=== PATIENT | male | born 1945 | race Caucasian/White ===

== ENCOUNTER 2017-06-14 18:41 | Inpatient (IN) | payer MEDICARE ==
[2017-06-14] MEDS ORDERED: SODIUM CHLORIDE 0.9% 1,000 ML IV STA (18:57)
[2017-06-14] MEDS ORDERED: SODIUM CHLORIDE 0.9% 500 ML IV STA (18:57)
[2017-06-14] MEDS ORDERED: PANTOPRAZOLE 40 MG/10 ML VIAL IVP STA (18:57)
--- NOTE | 2017-06-14 19:18 | ED ---
General Adult HPI - General Chief complaint: GI Bleed Stated complaint: rectal bleeding Time Seen by Provider: 06/14/17 18:57 Source: patient, RN notes reviewed, old records reviewed Mode of arrival: ambulatory Limitations: no limitations - History of Present Illness Initial comments: This is a 71-year-old male the ER for evaluation. Patient presents today for evaluation of GI bleed. Patient sent in by family doctor for evaluation regarding GI bleed. Patient has 2 days of positive blood per stool. No nausea vomiting no vomiting of blood. No history of similar. - Related Data Home Medications Medication Instructions Recorded Confirmed Apixaban [Eliquis] 5 mg PO BID 06/14/17 06/14/17 Ascorbic Acid [Vitamin C] 1,000 mg PO DAILY 06/14/17 06/14/17 Aspirin 81 mg PO DAILY 06/14/17 06/14/17 Digoxin [Lanoxin] 125 mcg PO DAILY 06/14/17 06/14/17 Famotidine [Pepcid] 20 mg PO BID 06/14/17 06/14/17 Fish Oil/Dha/Epa [Fish Oil 1,200 2 cap PO BID 06/14/17 06/14/17 mg Fish Oil] Hydrochlorothiazide [Hydrodiuril] 50 mg PO DAILY 06/14/17 06/14/17 Lisinopril [Zestril] 20 mg PO BID 06/14/17 06/14/17 Metoprolol Succinate (ER) [Toprol 200 mg PO DAILY 06/14/17 06/14/17 Xl] amLODIPine [Norvasc] 10 mg PO DAILY 06/14/17 06/14/17 metFORMIN HCL [Glucophage] 1,000 mg PO DAILY 06/14/17 06/14/17 metFORMIN HCL [Glucophage] 500 mg PO HS 06/14/17 06/14/17 Allergies Allergy/AdvReac Type Severity Reaction Status Date / Time No Known Allergies Allergy Verified 06/14/17 19:19 Review of Systems ROS Statement: Those systems with pertinent positive or pertinent negative responses have been documented in the HPI. ROS Other: All systems not noted in ROS Statement are negative. Past Medical History Past Medical History: Coronary Artery Disease (CAD), Diabetes Mellitus, Hyperlipidemia, Hypertension History of Any Multi-Drug Resistant Organisms: None Reported Past Surgical History: Pacemaker Past Psychological History: No Psychological Hx Reported Smoking Status: Former smoker Past Alcohol Use History: None Reported Past Drug Use History: None Reported General Exam Limitations: no limitations General appearance: alert, in no apparent distress Head exam: Present: atraumatic, normocephalic, normal inspection Eye exam: Present: normal appearance, PERRL, EOMI. Absent: scleral icterus, conjunctival injection, periorbital swelling ENT exam: Present: normal exam, mucous membranes moist Neck exam: Present: normal inspection. Absent: tenderness, meningismus, lymphadenopathy Respiratory exam: Present: normal lung sounds bilaterally. Absent: respiratory distress, wheezes, rales, rhonchi, stridor Cardiovascular Exam: Present: normal rhythm, tachycardia, normal heart sounds. Absent: systolic murmur, diastolic murmur, rubs, gallop, clicks GI/Abdominal exam: Present: soft, normal bowel sounds. Absent: distended, tenderness, guarding, rebound, rigid Extremities exam: Present: normal inspection, full ROM, normal capillary refill. Absent: tenderness, pedal edema, joint swelling, calf tenderness Back exam: Present: normal inspection Neurological exam: Present: alert, oriented X3, CN II-XII intact Psychiatric exam: Present: normal affect, normal mood Skin exam: Present: warm, dry, intact, normal color. Absent: rash Course Vital Signs 06/14/17 06/14/17 06/14/17 18:52 19:53 21:08 Temperature 97.7 F Pulse Rate 110 H 60 96 Respiratory 20 16 16 Rate Blood Pressure 87/55 98/66 112/58 O2 Sat by Pulse 94 L 97 98 Oximetry - Reevaluation(s) Reevaluation #1: 06/14/17 21:15 Patient has no active bleeding here in the ER Medical Decision Making - Medical Decision Making 69 female DEL GI bleed, patient is on anticoagulation,, patient be admitted for GI evaluation, monitoring of hemoglobin and hemodynamic status - Lab Data Result diagrams: 06/14/17 19:47 06/14/17 19:47 Lab Results 06/14/17 06/14/17 06/14/17 Range/Units 19:47 19:47 19:47 WBC 10.6 (3.8-10.6) k/uL RBC 5.09 (4.30-5.90) m/uL Hgb 15.0 (13.0-17.5) gm/dL Hct 45.5 (39.0-53.0) % MCV 89.3 (80.0-100.0) fL MCH 29.4 (25.0-35.0) pg MCHC 32.9 (31.0-37.0) g/dL RDW 14.6 (11.5-15.5) % Plt Count 286 (150-450) k/uL Neutrophils % 73 % Lymphocytes % 15 % Monocytes % 8 % Eosinophils % 2 % Basophils % 1 % Neutrophils # 7.7 (1.3-7.7) k/uL Lymphocytes # 1.6 (1.0-4.8) k/uL Monocytes # 0.8 (0-1.0) k/uL Eosinophils # 0.2 (0-0.7) k/uL Basophils # 0.1 (0-0.2) k/uL PT (9.0-12.0) sec INR (<1.2) APTT (22.0-30.0) sec Sodium 132 L (137-145) mmol/L Potassium 5.5 H (3.5-5.1) mmol/L Chloride 93 L (98-107) mmol/L Carbon Dioxide 24 (22-30) mmol/L Anion Gap 15 mmol/L BUN 36 H (9-20) mg/dL Creatinine 1.21 (0.66-1.25) mg/dL Est GFR (MDRD) Af Amer >60 (>60 ml/min/1.73 sqM) Est GFR (MDRD) Non-Af 59 (>60 ml/min/1.73 sqM) Glucose 222 H (74-99) mg/dL Calcium 9.8 (8.4-10.2) mg/dL Magnesium 1.2 L (1.6-2.3) mg/dL Total Bilirubin 0.9 (0.2-1.3) mg/dL AST 102 H (17-59) U/L ALT 125 H (21-72) U/L Alkaline Phosphatase 58 (38-126) U/L Total Creatine Kinase 131 (55-170) U/L CK-MB (CK-2) 2.1 (0.0-2.4) ng/mL CK-MB (CK-2) Rel Index 1.6 Troponin I <0.012 (0.000-0.034) ng/mL Total Protein 7.6 (6.3-8.2) g/dL Albumin 4.3 (3.5-5.0) g/dL Blood Type Blood Type Recheck Antibody Screen Spec Expiration Date 06/14/17 06/14/17 Range/Units 19:47 19:47 WBC (3.8-10.6) k/uL RBC (4.30-5.90) m/uL Hgb (13.0-17.5) gm/dL Hct (39.0-53.0) % MCV (80.0-100.0) fL MCH (25.0-35.0) pg MCHC (31.0-37.0) g/dL RDW (11.5-15.5) % Plt Count (150-450) k/uL Neutrophils % % Lymphocytes % % Monocytes % % Eosinophils % % Basophils % % Neutrophils # (1.3-7.7) k/uL Lymphocytes # (1.0-4.8) k/uL Monocytes # (0-1.0) k/uL Eosinophils # (0-0.7) k/uL Basophils # (0-0.2) k/uL PT 13.6 H (9.0-12.0) sec INR 1.5 H (<1.2) APTT 24.7 (22.0-30.0) sec Sodium (137-145) mmol/L Potassium (3.5-5.1) mmol/L Chloride (98-107) mmol/L Carbon Dioxide (22-30) mmol/L Anion Gap mmol/L BUN (9-20) mg/dL Creatinine (0.66-1.25) mg/dL Est GFR (MDRD) Af Amer (>60 ml/min/1.73 sqM) Est GFR (MDRD) Non-Af (>60 ml/min/1.73 sqM) Glucose (74-99) mg/dL Calcium (8.4-10.2) mg/dL Magnesium (1.6-2.3) mg/dL Total Bilirubin (0.2-1.3) mg/dL AST (17-59) U/L ALT (21-72) U/L Alkaline Phosphatase (38-126) U/L Total Creatine Kinase (55-170) U/L CK-MB (CK-2) (0.0-2.4) ng/mL CK-MB (CK-2) Rel Index Troponin I (0.000-0.034) ng/mL Total Protein (6.3-8.2) g/dL Albumin (3.5-5.0) g/dL Blood Type A Positive Blood Type Recheck CABO Indicated Antibody Screen NEGATIVE Spec Expiration Date 06/17/2017 - 2347 Disposition Clinical Impression: Gastrointestinal hemorrhage, Coagulopathy Disposition: ADMITTED IP TO THIS [facility] Condition: Fair Instructions: Gastrointestinal Bleeding (ED) Referrals: Abrahan Moody DO [Primary Care Provider] - 1-2 days
[2017-06-14 19:58] LABS: Basophils # (A) 0.1 k/uL (0-0.2); Basophils % (A) 1 %; Eosinophils # (A) 0.2 k/uL (0-0.7); Eosinophils % (A) 2 %; HCT 45.5 % (39.0-53.0); Lymphocytes # (A) 1.6 k/uL (1.0-4.8); Lymphocytes % (A) 15 %; MCH 29.4 pg (25.0-35.0); MCHC 32.9 g/dL (31.0-37.0); MCV 89.3 fL (80.0-100.0); Mean Platelet Volume 7.5; Monocytes # (A) 0.8 k/uL (0-1.0); Monocytes % (A) 8 %; Neutrophils # (A) 7.7 k/uL (1.3-7.7); Neutrophils % (A) 73 %; Platelet Count 286 k/uL (150-450); RBC 5.09 m/uL (4.30-5.90); RDW 14.6 % (11.5-15.5); WBC 10.6 k/uL (3.8-10.6)
[2017-06-14 20:12] LABS: INR 1.5 (<1.2); Partial Thromboplastin Time 24.7 sec (22.0-30.0); Prothrombin Time 13.6 sec (9.0-12.0)
[2017-06-14 20:14] LABS: ALT 125 U/L (21-72); AST 102 U/L (17-59); Albumin 4.3 g/dL (3.5-5.0); Alkaline Phosphatase 58 U/L (38-126); Anion Gap 15 mmol/L; Blood Urea Nitrogen 36 mg/dL (9-20); Calcium 9.8 mg/dL (8.4-10.2); Carbon Dioxide 24 mmol/L (22-30); Chloride 93 mmol/L (98-107); Glucose 222 mg/dL (74-99); Magnesium 1.2 mg/dL (1.6-2.3); Sodium 132 mmol/L (137-145); Total Bilirubin 0.9 mg/dL (0.2-1.3); Total Protein 7.6 g/dL (6.3-8.2)
[2017-06-14 20:16] LABS: Potassium 5.5 mmol/L (3.5-5.1)
[2017-06-14 20:18] LABS: Creatine Kinase 131 U/L (55-170)
[2017-06-14 20:31] LABS: Creatine Kinase MB 2.1 ng/mL (0.0-2.4); Troponin I <0.012 ng/mL (0.000-0.034)
[2017-06-14] MEDS ORDERED: SODIUM CHLORIDE 0.9% 1,000 ML IV ONE (21:13)
[2017-06-14 23:02] LABS: Glucose,Whole Blood 200 mg/dL (75-99)
[2017-06-14] MEDS ORDERED: Magnesium Replacement Protocol 1 EACH MISC MISCELLANE PRN (23:31)
[2017-06-15] MEDS: MAGNESIUM SULFATE-D5W PMX 1 GM in DEXTROSE/WATER 1 100ML.BAG IVPB SCH ×3 (00:44→03:31)
[2017-06-15 06:16] LABS: Glucose,Whole Blood 300 mg/dL (75-99)
[2017-06-15] MEDS: INSULIN ASPART 100 UNIT/ML 1 ML 10 ML VIAL SQ SCH ×4 (06:17→23:59)
--- NOTE | 2017-06-15 10:54 | P.CONS ---
History of Present Illness - Reason for Consult Consult date: 06/15/17 GI bleed Requesting physician: Jean-Claude Phillips - Chief Complaint Rectal bleeding - History of Present Illness 71-year-old gentleman with a history of atrial fibrillation pacemaker maintained on Eliquis and baby aspirin, diabetes, obesity BMI 38, hypertension, hyperlipidemia, PVD/femoral stent, presents with painless rectal bleeding 2 days. Patient noticed bright red blood in the toilet as well as tissue when wiping. Denies hematemesis or melena. No history of GI bleed. No history of EGD colonoscopy. No personal or familial history of hepatobiliary/colorectal cancers. No history of inflammatory bowel disease. Last dose of Eliquis yesterday morning. No changes in weight but appetite has been somewhat diminished over the last few weeks. Intermittent early satiety. Mild reflux. Denies alcohol excessive usage of NSAIDs or aspirin. Pepcid as needed for indigestion. Admission hemoglobin 15. MCV 89. Platelet 286. INR 1.5. BUN 36. Creatinine 1.2. AST 102. ALT 125. Total bili 0.9. Alkaline phosphatase 58. Review of Systems Constitutional: Denies fever, chills, sweats, weight gain, or loss. HEENT: Negative for migraines, blurred vision or loss, earaches, drainage, tinnitus, oral mucosal lesions, dysphagia, or odynophagia. Cardiac: Atrial fibrillation, hyperlipidemia, hypertension, pacemaker, Negative for chest pain. Respiratory: Negative for shortness of breath, hemoptysis, cough, or sputum production. Gastrointestinal: See HPI for pertinent findings. Genitourinary: Negative for hematuria, urgency, frequency, polyuria, dysuria, or penile discharge. Musculoskeletal: Negative for muscle aches, swelling, arthritis, and arthralgias. Neurologic: Negative for stroke or TIA. Endocrine: Diabetes mellitus. Negative for thyroid problems. Skin: Negative for rash or itching. Psychiatric: Negative history for depression and anxiety Past Medical History Past Medical History: Coronary Artery Disease (CAD), Diabetes Mellitus, Hyperlipidemia, Hypertension History of Any Multi-Drug Resistant Organisms: None Reported Past Surgical History: Pacemaker Additional Past Surgical History / Comment(s): Femoral stent placement Type of Cardiac Device: Permanent Pacemaker Device Placement Date:: November 2016 Past Psychological History: No Psychological Hx Reported Smoking Status: Former smoker Past Alcohol Use History: None Reported Past Drug Use History: None Reported Medications and Allergies Home Medications Medication Instructions Recorded Confirmed Type Apixaban [Eliquis] 5 mg PO BID 06/14/17 06/14/17 History Aspirin 81 mg PO DAILY 06/14/17 06/14/17 History Digoxin [Lanoxin] 125 mcg PO DAILY 06/14/17 06/14/17 History Metoprolol Succinate (ER) [Toprol 200 mg PO DAILY 06/14/17 06/14/17 History XL] metFORMIN HCL [Glucophage] 1,000 mg PO DAILY 06/14/17 06/14/17 History metFORMIN HCL [Glucophage] 500 mg PO HS 06/14/17 06/14/17 History Omeprazole [PriLOSEC] 40 mg PO DAILY 14 Days #14 06/17/17 Rx capsule. Allergies Allergy/AdvReac Type Severity Reaction Status Date / Time No Known Allergies Allergy Verified 06/14/17 19:19 Physical Exam Vitals: Vital Signs Temp Pulse Pulse Resp BP BP Pulse Ox 06/15/17 08:00 96.7 F L 90 16 111/73 93 L 06/15/17 04:00 97.6 F 95 18 95/57 92 L 06/15/17 00:00 105 H 18 06/14/17 23:04 97.0 F L 105 H 18 132/71 95 06/14/17 22:33 82 16 114/68 98 06/14/17 21:08 96 16 112/58 98 06/14/17 19:53 60 16 98/66 97 06/14/17 18:52 97.7 F 110 H 20 87/55 94 L Intake and Output 06/14/17 06/15/17 06/15/17 22:59 06:59 14:59 Intake Total 700 800 0 Balance 700 800 0 Intake: IV 700 800 Sodium Chloride 0.9% 1, 200 800 000 ml @ 100 mls/hr IV . Q10H ONE Rx#:[id number] Sodium Chloride 0.9% 500 500 ml @ 999 mls/hr IV .Q31M STA Rx#:[id number] Oral 0 Other: Voiding Method Toilet Toilet Urinal Urinal # Voids 1 2 Weight 112.491 kg 113.3 kg General appearance: The patient is alert, oriented, in no acute distress. HET: Head is normocephalic and atraumatic. Pupils are equal and reactive. Oropharynx is clear without lesions. Neck: Supple without lymphadenopathy. Trachea midline. Heart: S1 S2. Regular rate and rhythm. Lungs: No crackles or wheezes are heard. Abdomen: Soft, nontender, nondistended with bowel sounds. No peritoneal signs. No palpable organomegaly or masses. Extremities: Normal skin color and turgor. No cyanosis, rash, ulceration, clubbing, or edema. Radial and pedal pulses are 2/4 bilaterally. Neurological: No focal deficits. Strength and sensation are grossly intact. Results CBC & Chem 7: 06/16/17 05:59 06/16/17 05:59 Labs: Abnormal Lab Results - Last 24 Hours (Table) 06/14/17 06/14/17 06/14/17 Range/Units 19:47 19:47 23:00 PT 13.6 H (9.0-12.0) sec INR 1.5 H (<1.2) Sodium 132 L (137-145) mmol/L Potassium 5.5 H (3.5-5.1) mmol/L Chloride 93 L (98-107) mmol/L BUN 36 H (9-20) mg/dL Glucose 222 H (74-99) mg/dL POC Glucose (mg/dL) 200 H (75-99) mg/dL Magnesium 1.2 L (1.6-2.3) mg/dL AST 102 H (17-59) U/L ALT 125 H (21-72) U/L 06/15/17 Range/Units 06:13 PT (9.0-12.0) sec INR (<1.2) Sodium (137-145) mmol/L Potassium (3.5-5.1) mmol/L Chloride (98-107) mmol/L BUN (9-20) mg/dL Glucose (74-99) mg/dL POC Glucose (mg/dL) 300 H (75-99) mg/dL Magnesium (1.6-2.3) mg/dL AST (17-59) U/L ALT (21-72) U/L Assessment and Plan (1) GI bleed Narrative/Plan: Painless rectal bleeding 2 days possible perirectal possible diverticular possible ischemic with no history of endoscopic screening. Status: Acute Code(s): K92.2 - GASTROINTESTINAL HEMORRHAGE, UNSPECIFIED SNOMED Code(s): 19451828 (2) Rectal bleeding Status: Acute Code(s): K62.5 - HEMORRHAGE OF ANUS AND RECTUM SNOMED Code(s) : 64528082 (3) Atrial fibrillation Narrative/Plan: Maintained on Eliquis and baby ASA. Status: Acute Code(s): I48.91 - UNSPECIFIED ATRIAL FIBRILLATION SNOMED Code( s): 36164695 (4) Transaminitis Narrative/Plan: Suspect nonalcoholic fatty liver disease steatohepatitis with comorbidities of obesity diabetes hyperlipidemia and hypertension. Status: Acute Code(s): R74.0 - NONSPEC ELEV OF LEVELS OF TRANSAMNS & LACTIC ACID DEHYDRGNSE SNOMED Code(s): 274414794 (5) Coagulopathy Status: Acute Code(s): D68.9 - COAGULATION DEFECT, UNSPECIFIED SNOMED Code(s ): 59577562 Plan: 1. EGD colonoscopy evaluation tomorrow. 2. Continue to hold antiplatelet/anticoagulation therapy. 3. CBC monitoring. 4. Protonix 40 mg daily. Clear liquid diet for dinner nothing by mouth after midnight. The instrument setter has discussed the risks, benefits and alternative therapies for the above-mentioned procedure and for both sedation/analgesia as well as necessary blood product administration, if indicated, as they pertain to this patient. The patient has indicated understanding and acceptance of the risks and procedures discussed. Thank you for this kind referral and the opportunity to participate in the care of your patient. This consultation was discussed with Dr. Arias. The impression and plan of care have been directed as dictated.
[2017-06-15 11:33] LABS: Glucose,Whole Blood 367 mg/dL (75-99)
--- NOTE | 2017-06-15 14:17 | P.HPIM ---
History of Present Illness 69-year-old gentleman with history of atrial fibrillation pacemaker on baby aspirin and anti-correlation for atrial fibrillation came and complaints of GI bleed couple episodes yesterday and day before none today patient has bright red blood per rectum denied any hematemesis denied any melena abdominal pain nausea vomiting. Patient had did add denied any history. Colonoscopy. Patient was evaluated by gastroenterology patient does have my minimally elevated liver enzymes will repeat liver enzymes again tomorrow. Patient will undergo EGD and colonoscopy holding off anti-correlation is alive aspirin presently patient never had any cardiac catheterization but did have stents for peripheral vascular disease. Review of Systems REVIEW OF SYSTEMS: CONSTITUTIONAL: No fever, no malaise, no fatigue. HEENT: No recent visual problems or hearing problems. Denied any sore throat. CARDIOVASCULAR: No chest pain, orthopnea, PND, no palpitations, no syncope. PULMONARY: No shortness of breath, no cough, no hemoptysis. GASTROINTESTINAL: As mentioned in HPI NEUROLOGICAL: No headaches, no weakness, no numbness. HEMATOLOGICAL: Denies any bleeding or petechiae. GENITOURINARY: Denies any burning micturition, frequency, or urgency. MUSCULOSKELETAL/RHEUMATOLOGICAL: Denies any joint pain, swelling, or any muscle pain. ENDOCRINE: Denies any polyuria or polydipsia. The rest of the 14-point review of systems is negative. Past Medical History Past Medical History: Coronary Artery Disease (CAD), Diabetes Mellitus, Hyperlipidemia, Hypertension History of Any Multi-Drug Resistant Organisms: None Reported Past Surgical History: Pacemaker Additional Past Surgical History / Comment(s): Femoral stent placement Type of Cardiac Device: Permanent Pacemaker Device Placement Date:: November 2016 Past Psychological History: No Psychological Hx Reported Smoking Status: Former smoker Past Alcohol Use History: None Reported Past Drug Use History: None Reported Medications and Allergies Home Medications Medication Instructions Recorded Confirmed Type Apixaban [Eliquis] 5 mg PO BID 06/14/17 06/14/17 History Ascorbic Acid [Vitamin C] 1,000 mg PO DAILY 06/14/17 06/14/17 History Aspirin 81 mg PO DAILY 06/14/17 06/14/17 History Digoxin [Lanoxin] 125 mcg PO DAILY 06/14/17 06/14/17 History Famotidine [Pepcid] 20 mg PO BID 06/14/17 06/14/17 History Fish Oil/Dha/Epa [Fish Oil 1,200 2 cap PO BID 06/14/17 06/14/17 History mg Fish Oil] Hydrochlorothiazide [Hydrodiuril] 50 mg PO DAILY 06/14/17 06/14/17 History Lisinopril [Zestril] 20 mg PO BID 06/14/17 06/14/17 History Metoprolol Succinate (ER) [Toprol 200 mg PO DAILY 06/14/17 06/14/17 History Xl] amLODIPine [Norvasc] 10 mg PO DAILY 06/14/17 06/14/17 History metFORMIN HCL [Glucophage] 1,000 mg PO DAILY 06/14/17 06/14/17 History metFORMIN HCL [Glucophage] 500 mg PO HS 06/14/17 06/14/17 History Allergies Allergy/AdvReac Type Severity Reaction Status Date / Time No Known Allergies Allergy Verified 06/14/17 19:19 Physical Exam Vitals: Vital Signs Temp Pulse Pulse Resp BP BP Pulse Ox 06/15/17 12:00 97.0 F L 101 H 16 136/77 95 06/15/17 08:00 96.7 F L 90 16 111/73 93 L 06/15/17 04:00 97.6 F 95 18 95/57 92 L 06/15/17 00:00 105 H 18 06/14/17 23:04 97.0 F L 105 H 18 132/71 95 06/14/17 22:33 82 16 114/68 98 06/14/17 21:08 96 16 112/58 98 06/14/17 19:53 60 16 98/66 97 06/14/17 18:52 97.7 F 110 H 20 87/55 94 L Intake and Output 06/14/17 06/15/17 06/15/17 22:59 06:59 14:59 Intake Total 700 800 0 Balance 700 800 0 Intake: IV 700 800 Sodium Chloride 0.9% 1, 200 800 000 ml @ 100 mls/hr IV . Q10H ONE Rx#:[id number] Sodium Chloride 0.9% 500 500 ml @ 999 mls/hr IV .Q31M STA Rx#:[id number] Oral 0 Other: Voiding Method Toilet Toilet Urinal Urinal # Voids 1 2 Weight 112.491 kg 113.3 kg PHYSICAL EXAMINATION: GENERAL: The patient is alert and oriented x3, not in any acute distress. Well developed, well nourished. HEENT: Pupils are round and equally reacting to light. EOMI. No scleral icterus. No conjunctival pallor. Normocephalic, atraumatic. No pharyngeal erythema. No thyromegaly. CARDIOVASCULAR: S1 and S2 present. No murmurs, rubs, or gallops. PULMONARY: Chest is clear to auscultation, no wheezing or crackles. ABDOMEN: Soft, nontender, nondistended, normoactive bowel sounds. No palpable organomegaly. MUSCULOSKELETAL: No joint swelling or deformity. EXTREMITIES: No cyanosis, clubbing, or pedal edema. NEUROLOGICAL: Gross neurological examination did not reveal any focal deficits. SKIN: No rashes. Results CBC & Chem 7: 06/14/17 19:47 06/14/17 19:47 Labs: Abnormal Lab Results - Last 24 Hours (Table) 06/14/17 06/14/17 06/14/17 Range/Units 19:47 19:47 23:00 PT 13.6 H (9.0-12.0) sec INR 1.5 H (<1.2) Sodium 132 L (137-145) mmol/L Potassium 5.5 H (3.5-5.1) mmol/L Chloride 93 L (98-107) mmol/L BUN 36 H (9-20) mg/dL Glucose 222 H (74-99) mg/dL POC Glucose (mg/dL) 200 H (75-99) mg/dL Magnesium 1.2 L (1.6-2.3) mg/dL AST 102 H (17-59) U/L ALT 125 H (21-72) U/L 06/15/17 06/15/17 Range/Units 06:13 11:31 PT (9.0-12.0) sec INR (<1.2) Sodium (137-145) mmol/L Potassium (3.5-5.1) mmol/L Chloride (98-107) mmol/L BUN (9-20) mg/dL Glucose (74-99) mg/dL POC Glucose (mg/dL) 300 H 367 H (75-99) mg/dL Magnesium (1.6-2.3) mg/dL AST (17-59) U/L ALT (21-72) U/L Thrombosis Risk Factor Assmnt - Choose All That Apply Each Factor Represents 1 point: Swollen legs (current) Each Risk Factor Represents 2 Points: Age 61-74 years Thrombosis Risk Factor Assessment Total Risk Factor Score: 3 Thrombosis Risk Factor Assessment Level: Moderate Risk Assessment and Plan Plan: -Acute GI bleed unsure whether it's upper or lower GI bleed leading to acute blood loss anemia although his hemoglobin is fairly well now. Patient is hypotensive because of which will hold off antidepressant medications except for rate control medications. Holding of anticoagulation patient will undergo EGD and colonoscopy. -Hypertension: Patient is presently hypotensive getting IV fluids never had any history of congestive heart failure and holding off hydrochlorothiazide due to hyponatremia, hypotension, holding off on amlodipine because of hypotension patient had history of peripheral edema secondary to amlodipine. -Hyponatremia hypovolemic hyponatremia from possible GI bleed with contribution from hydrochlorothiazide. -Hyperkalemia: Holding off on lisinopril acute kidney disease contributing to hyperkalemia. -Acute renal failure: Prerenal azotemia from diuretic therapy and GI bleed -Atrial fibrillation: Patient is on metoprolol and digoxin which will be continued
[2017-06-15] MEDS ORDERED: METOPROLOL SUCCINATE (ER) 100 MG TAB.ER.24H PO SCH (14:45)
[2017-06-15] MEDS: DIGOXIN 125 MCG TAB PO SCH (15:50)
[2017-06-15 15:57] LABS: Hemoglobin A1C 10.1 % (4.0-6.0)
[2017-06-15] MEDS ORDERED: PEG 3350-NA SULF,BICARB,CL/KCL 4,000 ML BOTTLE PO ONE (16:00)
[2017-06-15 16:20] LABS: Glucose,Whole Blood 219 mg/dL (75-99)
[2017-06-15] MEDS: METOPROLOL SUCCINATE (ER) 100 MG TAB.ER.24H PO SCH (20:03)
[2017-06-16] LABS: Glucose,Whole Blood 209 mg/dL (75-99)
[2017-06-16] MEDS: PANTOPRAZOLE 40 MG TABLET PO SCH (06:03)
[2017-06-16 06:10] LABS: Glucose,Whole Blood 192 mg/dL (75-99)
[2017-06-16] MEDS: INSULIN ASPART 100 UNIT/ML 1 ML 10 ML VIAL SQ SCH ×5 (06:11→23:55)
[2017-06-16 06:30] LABS: HCT 41.3 % (39.0-53.0); HGB 13.4 gm/dL (13.0-17.5); MCH 29.2 pg (25.0-35.0); MCHC 32.4 g/dL (31.0-37.0); Mean Platelet Volume 7.4; Platelet Count 192 k/uL (150-450); RBC 4.59 m/uL (4.30-5.90); RDW 14.1 % (11.5-15.5); WBC 7.4 k/uL (3.8-10.6)
[2017-06-16 06:53] LABS: ALT 114 U/L (21-72); AST 88 U/L (17-59); Albumin 3.4 g/dL (3.5-5.0); Alkaline Phosphatase 54 U/L (38-126); Anion Gap 10 mmol/L; Blood Urea Nitrogen 16 mg/dL (9-20); Calcium 8.6 mg/dL (8.4-10.2); Carbon Dioxide 25 mmol/L (22-30); Chloride 99 mmol/L (98-107); Glucose 194 mg/dL (74-99); Potassium 4.3 mmol/L (3.5-5.1); Sodium 134 mmol/L (137-145); Total Bilirubin 0.8 mg/dL (0.2-1.3)
[2017-06-16] MEDS: METOPROLOL SUCCINATE (ER) 100 MG TAB.ER.24H PO SCH ×2 (08:15→20:05)
[2017-06-16] MEDS: DIGOXIN 125 MCG TAB PO SCH (08:15)
[2017-06-16] MEDS ORDERED: METOPROLOL SUCCINATE (ER) 100 MG TAB.ER.24H PO SCH (09:00)
[2017-06-16] MEDS ORDERED: DIGOXIN 125 MCG TAB PO SCH ×2 (09:00→14:39)
[2017-06-16 11:48] VITALS: BMI 37.6
[2017-06-16 12:04] LABS: Glucose,Whole Blood 174 mg/dL (75-99)
[2017-06-16] MEDS ORDERED: fentaNYL (PF) 50 MCG/ML 2 ML AMP ONE (13:47)
[2017-06-16] MEDS ORDERED: PROPOFOL 10 MG/ML 20 ML VIAL IV ONE (13:47)
[2017-06-16] MEDS ORDERED: MIDAZOLAM 2 MG/2 ML VIAL ONE (13:47)
[2017-06-16] MEDS ORDERED: LACTATED RINGERS 1,000 ML IV ONE (13:48)
--- NOTE | 2017-06-16 14:10 | P.PCN ---
Date of Procedure: 06/16/17 Procedure(s) Performed: Brief history: Patient is a pleasant 71-year-old white male, admitted to the hospital with acute GI bleed. He did multiple episodes of maroon colored stools/right red blood per rectum for 3 days' duration. Hemoglobin is stable at 13 g/dL. His and scheduled for an upper endoscopy as well as colonoscopy to evaluate further. Procedure performed: Esophagogastroduodenoscopy with biopsy Colonoscopy Preoperative diagnosis: Acute GI bleed Anesthesia: MAC Procedure: After informed consent was obtained from the patient was brought into the endoscopy unit and IV sedation was administered by anesthesia under continuous monitoring. Initially upper endoscopy was done. The Olympus GF 160 video endoscope was inserted inserted into the mouth and esophagus intubated without any difficulty and was gradually advanced into the stomach and duodenum and carefully examined. The bulb and second part of the duodenum appeared normal. The scope was then withdrawn into the stomach adequately insufflated with air and upon careful examination the antrum and body, cardia and fundus appeared normal. The scope was then withdrawn into the esophagus. The GE junction was located at 40 cm to the incisors. It appeared regular with no erythema erosions or ulcerations. Rest of the esophagus appeared normal. Patient tolerated the procedure well. At this time the patient continued to remain sedation. Initial digital rectal examination was normal. Olympus CF 160 video colonoscope was then inserted into the rectum and gradually advanced to the cecum without any difficulty. Careful examination was performed as the scope was gradually being withdrawn. The prep was excellent. The cecum, ascending colon, transverse colon, descending colon, sigmoid colon and rectum appeared normal. Scattered sigmoid diverticulosis seen. Retroflexion was performed in the rectum and small internal hemorrhoids were noted. Patient tolerated the procedure well. Impression: 1. Upper endoscopy revealed mild antral erosive gastritis. 2. Colonoscopy revealed scattered sigmoid diverticulosis and small internal hemorrhoids. Recommendations: Findings of this examination were discussed with the patient as well as his family. He was advised to follow with the biopsy results. Recent episode of GI bleed possibly related to bleeding from internal hemorrhoids. He was advised to be on a high-fiber diet and take fiber supplements a regular basis.
--- NOTE | 2017-06-16 15:36 | P.PN ---
Subjective Progress Note Date: 06/16/17 Progress Note being dictated for Interval history:69-year-old gentleman with history of atrial fibrillation pacemaker on baby aspirin and anti-correlation for atrial fibrillation came and complaints of GI bleed couple episodes yesterday and day before none today patient has bright red blood per rectum denied any hematemesis denied any melena abdominal pain nausea vomiting. Patient had did add denied any history. Colonoscopy. Patient was evaluated by gastroenterology patient does have my minimally elevated liver enzymes will repeat liver enzymes again tomorrow. Patient will undergo EGD and colonoscopy holding off anti-correlation is alive aspirin presently patient never had any cardiac catheterization but did have stents for peripheral vascular disease. Review of Systems REVIEW OF SYSTEMS: CONSTITUTIONAL: No fever, no malaise, no fatigue. HEENT: No recent visual problems or hearing problems. Denied any sore throat. CARDIOVASCULAR: No chest pain, orthopnea, PND, no palpitations, no syncope. PULMONARY: No shortness of breath, no cough, no hemoptysis. GASTROINTESTINAL: As mentioned in HPI NEUROLOGICAL: No headaches, no weakness, no numbness. HEMATOLOGICAL: Denies any bleeding or petechiae. GENITOURINARY: Denies any burning micturition, frequency, or urgency. MUSCULOSKELETAL/RHEUMATOLOGICAL: Denies any joint pain, swelling, or any muscle pain. ENDOCRINE: Denies any polyuria or polydipsia. The rest of the 14-point review of systems is negative. 06/16/2017. No overnight events. No further bleeding. Hemoglobin 13.4. Nothing by mouth. Scheduled for EGD and colonoscopy today. Telemetry reporting atrial fibrillation with heart rates in the low 100s. Systolic blood pressures high 90s to 130s. Denies chest pain, palpitations or shortness of breath. Denies lightheadedness dizziness or focal deficits. Denies abdominal pain. Maintained on IV fluid hydration, current sodium 134. Potassium WNL. Objective - Vital Signs Vital signs: Vital Signs Temp 97.0 F L 06/16/17 08:00 Pulse 108 H 06/16/17 08:00 Resp 18 06/16/17 08:00 BP 134/74 06/16/17 08:00 Pulse Ox 93 L 06/16/17 08:00 Intake & Output 06/15/17 06/16/17 06/16/17 18:59 06:59 18:59 Intake Total 480 1600 Output Total 5300 Balance 480 -3700 Weight 112.4 kg Intake: IV 1600 Sodium Chloride 0.9% 1, 1600 000 ml @ 100 mls/hr IV . Q10H ONE Rx#:[id number] Oral 480 Output: Urine 300 Stool 5000 Other: Voiding Method Toilet Toilet Toilet Urinal Urinal Urinal # Voids 2 2 # Bowel Movements 4 - Exam GENERAL: The patient is alert and oriented x3, not in any acute distress. Well developed, well nourished. HEENT: Pupils are round and equally reacting to light. EOMI. No scleral icterus. No conjunctival pallor. Normocephalic, atraumatic. No pharyngeal erythema. No thyromegaly. CARDIOVASCULAR: S1 and S2 present. No murmurs, rubs, or gallops. PULMONARY: Chest is clear to auscultation, no wheezing or crackles. ABDOMEN: Soft, nontender, nondistended, normoactive bowel sounds. No palpable organomegaly. MUSCULOSKELETAL: No joint swelling or deformity. EXTREMITIES: No cyanosis, clubbing, or pedal edema. NEUROLOGICAL: Gross neurological examination did not reveal any focal deficits. SKIN: No rashes. - Labs CBC & Chem 7: 06/16/17 05:59 06/16/17 05:59 Labs: Abnormal Lab Results - Last 24 Hours (Table) 06/15/17 06/15/17 06/15/17 Range/Units 06:10 11:31 16:18 Sodium (137-145) mmol/L Glucose (74-99) mg/dL POC Glucose (mg/dL) 367 H 219 H (75-99) mg/dL Hemoglobin A1c 10.1 H (4.0-6.0) % AST (17-59) U/L ALT (21-72) U/L Total Protein (6.3-8.2) g/dL Albumin (3.5-5.0) g/dL 06/15/17 06/16/17 06/16/17 Range/Units 23:50 05:59 06:09 Sodium 134 L (137-145) mmol/L Glucose 194 H (74-99) mg/dL POC Glucose (mg/dL) 209 H 192 H (75-99) mg/dL Hemoglobin A1c (4.0-6.0) % AST 88 H (17-59) U/L ALT 114 H (21-72) U/L Total Protein 6.0 L (6.3-8.2) g/dL Albumin 3.4 L (3.5-5.0) g/dL Assessment and Plan Assessment: Acute GI bleed unsure whether it's upper or lower GI bleed leading to acute blood loss anemia , colonoscopy, EGD pending -Hypertension: Patient is presently hypotensive getting IV fluids never had any history of congestive heart failure and holding off hydrochlorothiazide due to hyponatremia, hypotension, holding off on amlodipine because of hypotension , patient had history of peripheral edema secondary to amlodipine. -Hyponatremia hypovolemic hyponatremia from possible GI bleed with contribution from hydrochlorothiazide. -Hyperkalemia: Holding off on lisinopril acute kidney disease contributing to hyperkalemia. -Acute renal failure: Prerenal azotemia from diuretic therapy and GI bleed -Atrial fibrillation Plan: Continue on current medication regime , PPI,metoprolol, digoxin , monitoring. IV fluid hydration. Anticoagulation remains on hold, EGD and colonoscopy pending. The impression and plan of care has been dictated as directed. : I performed a history and examination of this patient, discussed the same with the dictator. I agree with the dictator's note ,documented as a scribe. Any additional findings or plans will be noted.
[2017-06-16 16:30] LABS: Glucose,Whole Blood 182 mg/dL (75-99)
[2017-06-16 18:38] VITALS: RESP 18
[2017-06-16] MEDS: SODIUM CHLORIDE 0.9% 1,000 ML IV SCH (19:06)
[2017-06-16 20:54] LABS: Glucose,Whole Blood 201 mg/dL (75-99)
[2017-06-17 00:03] LABS: Glucose,Whole Blood 176 mg/dL (75-99)
[2017-06-17] MEDS: SODIUM CHLORIDE 0.9% 1,000 ML IV SCH (03:50)
[2017-06-17 06:09] LABS: Glucose,Whole Blood 188 mg/dL (75-99)
[2017-06-17] MEDS: PANTOPRAZOLE 40 MG TABLET PO SCH (06:33)
[2017-06-17] MEDS: INSULIN ASPART 100 UNIT/ML 1 ML 10 ML VIAL SQ SCH (06:33)
[2017-06-17 08:48] VITALS: BP 117/73; PULSE 97; TEMP 97.1
[2017-06-17] MEDS: METOPROLOL SUCCINATE (ER) 100 MG TAB.ER.24H PO SCH (08:48)
[2017-06-17] MEDS: DIGOXIN 125 MCG TAB PO SCH (08:48)
--- NOTE | 2017-06-17 12:02 | P.DS ---
Providers Date of admission: 06/14/17 21:13 Attending physician: Jean-Claude Phillips Consults: 06/14/17 21:13 Consult Physician Routine Consulting Provider: Calin Barraza Consult Reason/Comments: gib Do you want consulting provider notified?: Yes [facility] care physician[facility] Course: 69-year-old gentleman with history of atrial fibrillation pacemaker on baby aspirin and anti-correlation for atrial fibrillation came and complaints of GI bleed couple episodes yesterday and day before none today patient has bright red blood per rectum denied any hematemesis denied any melena abdominal pain nausea vomiting. Patient had did add denied any history. Colonoscopy. Patient was evaluated by gastroenterology patient does have my minimally elevated liver enzymes will repeat liver enzymes again tomorrow. Patient will undergo EGD and colonoscopy holding off anti-correlation is alive aspirin presently patient never had any cardiac catheterization but did have stents for peripheral vascular disease. 06/17/2017 Patient underwent upper GI endoscopy and coloscopy patient has some diverticulosis and the gastritis patient will be discharged on Prilosec for 15 days. Patient blood pressure is within normal limits in spite of stopping his lisinopril hydrochlorothiazide and amlodipine which will be discontinued and patient will follow with his accounting/finance tutor as an outpatient patient will be resumed on his anticoagulation as well as aspirin as per the recommendations from gastroenterology. Assessment and Plan Assessment: Acute GI bleed -Hypertension: Patient is presently hypotensive getting IV fluids never had any history of congestive heart failure and holding off hydrochlorothiazide due to hyponatremia, hypotension, improved now. -Hyponatremia hypovolemic hyponatremia from possible GI bleed with contribution from hydrochlorothiazide. -Hyperkalemia: Improved -Acute renal failure: Prerenal azotemia from diuretic therapy and GI bleed -Atrial fibrillation Patient Condition at Discharge: Fair Plan - Discharge Summary Discharge Rx Participant: No New Discharge Prescriptions: New Omeprazole [PriLOSEC] 40 mg PO DAILY 14 Days #14 capsule. Continue Digoxin [Lanoxin] 125 mcg PO DAILY Metoprolol Succinate (ER) [Toprol XL] 200 mg PO DAILY metFORMIN HCL [Glucophage] 1,000 mg PO DAILY metFORMIN HCL [Glucophage] 500 mg PO HS Apixaban [Eliquis] 5 mg PO BID Discontinued amLODIPine [Norvasc] 10 mg PO DAILY Lisinopril [Zestril] 20 mg PO BID Hydrochlorothiazide [Hydrodiuril] 50 mg PO DAILY Fish Oil/Dha/Epa [Fish Oil 1,200 mg Fish Oil] 2 cap PO BID Famotidine [Pepcid] 20 mg PO BID Ascorbic Acid [Vitamin C] 1,000 mg PO DAILY No Action Aspirin 81 mg PO DAILY Discharge Medication List Apixaban [Eliquis] 5 mg PO BID 06/14/17 [History] Aspirin 81 mg PO DAILY 06/14/17 [History] Digoxin [Lanoxin] 125 mcg PO DAILY 06/14/17 [History] Metoprolol Succinate (ER) [Toprol XL] 200 mg PO DAILY 06/14/17 [History] metFORMIN HCL [Glucophage] 1,000 mg PO DAILY 06/14/17 [History] metFORMIN HCL [Glucophage] 500 mg PO HS 06/14/17 [History] Omeprazole [PriLOSEC] 40 mg PO DAILY 14 Days #14 capsule. 06/17/17 [Rx] Follow up Appointment(s)/Referral(s): Abrahan Moody DO [Primary Care Provider] - 06/20/17 10:00 am Patient Instructions/Handouts: Gastrointestinal Bleeding (ED), Safe Use of Anticoagulants (DC) Activity/Diet/Wound Care/Special Instructions: DO NOT TAKE Lisinopril Hydrochlorothiazide Vitamin C Norvasc DO take Prilosec for 2 weeks every morning Discharge Disposition: HOME SELF-CARE
--- NOTE | 2017-06-18 09:28 | PN ---
PROGRESS NOTE DATE OF SERVICE: 06/17/2017. The patient is a 71-year-old pleasant white male admitted to the hospital with acute GI bleed. He had multiple episodes of rectal bleeding and had an upper endoscopy as well as colonoscopy done yesterday by me. Upper endoscopy revealed gastritis and colonoscopy revealed sigmoid diverticulosis and internal hemorrhoids. The patient is doing well. The bleeding has completely resolved. He has been off the Eliquis for the last 3 days. He reports no abdominal pain. No nausea, vomiting. PHYSICAL EXAMINATION: Appears comfortable, no apparent distress. VITAL SIGNS: Stable. Blood pressure 125/79, pulse rate 94, temperature 97.1. HEENT examination unremarkable. Conjunctivae pink. Sclerae anicteric. Oral cavity no lesions. Neck: No jugular venous distention or lymph node enlargement. Chest was clear to auscultation. HEART: Regular rate and rhythm. ABDOMEN: Soft. Bowel sounds are positive. No organomegaly. Extremities no pedal edema. Skin no rashes. NEUROLOGIC: Alert and oriented x3. No focal deficits. LABS: Hemoglobin 13.4 yesterday. IMPRESSION: Acute gastrointestinal bleed, possibly hemorrhoid in etiology. Of course diverticular bleed cannot be excluded, but currently the bleeding has completely subsided. Status post EGD, colonoscopy yesterday as mentioned above. RECOMMENDATIONS: Diet will be advanced as tolerated. Anticoagulation can be resumed. He can be discharged home today. Outpatient follow up as needed. MMODL / BALTAZARN: [id number] /
== END 2017-06-17 10:20 | disposition home or self-care (01) | DRG 378 ==
LOC: EC 18:41 → 6SEL 21:13
PROVIDERS: ADMIT Hospitalist; ATTEND Hospitalist
DX: K92.2 Gastrointestinal hemorrhage, unspecified (principal); E87.1 Hypo-osmolality and hyponatremia; N17.9 Acute kidney failure, unspecified; E11.51 Type 2 diabetes mellitus with diabetic peripheral angiopathy without gangrene; D68.9 Coagulation defect, unspecified; E87.5 Hyperkalemia; E78.5 Hyperlipidemia, unspecified; I10 Essential (primary) hypertension; I25.10 Atherosclerotic heart disease of native coronary artery without angina pectoris; K21.9 Gastro-esophageal reflux disease without esophagitis; K29.60 Other gastritis without bleeding; K57.31 Diverticulosis of large intestine without perforation or abscess with bleeding; K64.8 Other hemorrhoids; Z79.01 Long term (current) use of anticoagulants; Z79.82 Long term (current) use of aspirin; Z79.899 Other long term (current) drug therapy; Z87.891 Personal history of nicotine dependence; I48.91 Unspecified atrial fibrillation
CPT/HCPCS: 36415; 43239; 45378; 80053; 82550; 82553; 83036; 83735; 84484; 85025; 85027; 85610; 85730; 86850; 86900; 86901; 88305; 88342; 96361; 96374; 99285

== ENCOUNTER → 2019-02-14 | Outpatient (CLI) | payer MEDICARE ==
--- NOTE | 2019-02-14 13:05 | CONS ---
CONSULTATION DATE OF SERVICE: 02/14/2019 This 73-year-old gentleman has been evaluated in sleep center for possible obstructive sleep apnea-hypopnea syndrome. HISTORY OF PRESENT ILLNESS/SLEEP-WAKE EVALUATION: Patient's usual sleep schedule from around 9 p.m. to 7:30. He does have problem with falling asleep, although no TV in bedroom. He snores loudly and has episodes of awakenings from sleep with stop breathing, choking, dry mouth, panic attack, gasping for air about 4 times and nocturia about 3 times. During the day, patient may fall asleep. [place] Sleepiness Scale significantly increased to 19. He has problem with memory, concentration, episodes of irritability. He usually takes 1 nap during the day. No history of hypnagogic hallucinations, sleep paralysis or cataplexy. PAST MEDICAL HISTORY: Positive for coronary artery disease, hypertension, atrial fibrillation, mitral valve insufficiency, hyperlipidemia, diabetes mellitus. PAST SURGICAL HISTORY: CABG, stent insertion, permanent pacemaker insertion, in 1994. MEDICATIONS: Metoprolol, aspirin, Eliquis, metformin, digoxin, lisinopril, Januvia, Bumex, potassium supplement, Repatha. REVIEW OF SYSTEMS: Multiple awakenings from sleep, sleepiness during the day, swelling of the legs, shortness of breath while walking. FAMILY HISTORY: Hypertension, heart problems, stroke, arthritis, snoring. SOCIAL HISTORY: Positive for smoking for about 40 pack years, quit in 1994. Alcohol consumption rarely. PHYSICAL EXAMINATION: During physical exam, gentleman without distress. VITAL SIGNS: BP 111/60, HR 72, RR 16, height 5 feet 6 inches, weight 212 pounds, oxygen saturation on room air 98%. HEENT: PERRLA, EOMI. Oropharynx low position of soft palate. Mallampati 3. NECK: Wide neck, 17 inches in circumference. LUNGS: Clear to percussion and to auscultation. Good air exchange. No wheezing or rhonchi. HEART: S1, S2 sounds regular. Murmur on the mitral valve area. ABDOMEN: Slightly diabetes. EXTREMITIES: 1+ ankle edema. RECORDS MANAGEMENT COORDINATOR: Awake, alert, and oriented X3. Cranial nerves 2 to 7 intact. There is no fasciculation or atrophy. noted. No focal deficits observed. IMPRESSION: 1. Loud snoring, multiple awakenings from sleep with gasping for air and choking. Low position of soft palate, wide neck, significant excessive daytime sleepiness. [place] Sleepiness Scale increased to 19. Obstructive sleep apnea-hypopnea syndrome. 2. History of atrial fibrillation. 3. Coronary artery disease, status post coronary artery bypass grafting. 4. Status post permanent pacemaker insertion. 5. History of mitral valve insufficiency. 6. Status post stent insertion to coronary arteries. 7. Hyperlipidemia. 8. Diabetes mellitus. 9. Status post in 1994. PLAN: 1. Polysomnography for evaluation of patient's breathing during sleep. 2. CPAP/BiPAP titration if sleep study confirms obstructive sleep apnea-hypopnea syndrome. 3. Preferable position during sleep on the side. 4. No driving if patient feels any sleepiness. 5. I will see patient for follow up visit to explain results of testing and following plan. Thank you very much for referring this patient for consultation. Sincerely, Cain Akhtar MD, PhD, FAASM Diplomat of [place] [employer] [place] [employer] Chief [employer] of [facility] [place] MMODL / IJN: [id number] /
== END | disposition home or self-care (01) ==
LOC: SLEEP 11:29
PROVIDERS: ATTEND Internal Medicine
DX: G47.33 Obstructive sleep apnea (adult) (pediatric) (principal); I48.91 Unspecified atrial fibrillation; I25.10 Atherosclerotic heart disease of native coronary artery without angina pectoris; E11.9 Type 2 diabetes mellitus without complications; E78.5 Hyperlipidemia, unspecified; I10 Essential (primary) hypertension; Z86.79 Personal history of other diseases of the circulatory system; Z87.891 Personal history of nicotine dependence; Z95.0 Presence of cardiac pacemaker; Z95.5 Presence of coronary angioplasty implant and graft; Z79.82 Long term (current) use of aspirin; Z79.84 Long term (current) use of oral hypoglycemic drugs; Z79.899 Other long term (current) drug therapy
CPT/HCPCS: 99211